=== PATIENT | female | born 1985 | race Caucasian/White ===

== ENCOUNTER 2018-03-05 21:18 | Inpatient (IN) | payer MEDICAID ==
[~2018-03-05] VITALS: Ht 142.2 cm; Wt 56.7 kg
[~2018-03-05 21:18] MED LIST: IBUP-974 PO; PREN-13 PO
[2018-03-05] MEDS ORDERED: LACTATED RINGERS 1,000 ML IV SCH (21:32)
[2018-03-05] MEDS ORDERED: OXYTOCIN 20 UNITS in LACTATED RINGERS 1,000 ML IV SCH (21:35)
[2018-03-05] MEDS ORDERED: PROMETHAZINE 25 MG/ML VIAL IVP PRN (21:35)
[2018-03-05] MEDS ORDERED: NALBUPHINE 10 MG/ML AMP IVP PRN (21:35)
[2018-03-05] MEDS ORDERED: OXYTOCIN 10 UNITS/ML VIAL IM SCH (22:00)
[2018-03-05 22:22] LABS: BASOPHILS % (AUTO) 0.8 % (0.0-2.0); EOSINOPHILS # (AUTO) 0.1 K/uL (0-0.4); EOSINOPHILS % (AUTO) 1.5 % (0.0-4.0); HEMATOCRIT 35.7 % (36-48); HEMOGLOBIN 12.2 g/dL (12.0-16.0); LYMPHOCYTES # (AUTO) 1.3 K/uL (2.5-16.5); LYMPHOCYTES % (AUTO) 23.3 % (20.5-51.1); MEAN CORPUSCULAR HEMOGLOBIN 29 pg (27-31); MEAN CORPUSCULAR HGB CONC 34 g/dL (33-37); MEAN CORPUSCULAR VOLUME 84.3 fL (80-94); MONOCYTES # (AUTO) 0.4 K/uL (0.8-1.0); NEUTROPHILS # (AUTO) 3.8 K/uL (1.8-7.7); NEUTROPHILS % (AUTO) 66.4 % (42.2-75.2); PLATELET COUNT (AUTO) 188 K/uL (140-450); RED BLOOD CELL COUNT(AUTO) 4.23 MIL/uL (4.20-5.40); RED CELL DISTRIBUTION WIDTH 14.6 % (11.6-13.7); WHITE BLOOD COUNT (AUTO) 5.7 K/uL (4.8-10.8)
[2018-03-05 22:27] LABS: APPEARANCE,URINE SL CLOUDY (CLEAR); BILIRUBIN,URINE NEGATIVE (NEGATIVE); BLOOD, URINE 2+ (NEGATIVE); COLOR,URINE YELLOW (YELLOW); LEUKOCYTE ESTERASE ,URINE NEGATIVE (NEGATIVE); NITRITE, URINE NEGATIVE (NEGATIVE); UGLUCOSE NEGATIVE (NEGATIVE)
[2018-03-05 22:29] LABS: ANION GAP 14.9 (8-16); CARBON DIOXIDE 22.3 mmol/L (21-32); CREATININE 0.6 mg/dL (0.6-1.3); POTASSIUM 4.2 mmol/L (3.5-5.1)
[2018-03-05 22:34] LABS: ALBUMIN 2.6 g/dL (3.4-5.0); TOTAL BILIRUBIN 0.2 mg/dL (0.0-1.0)
[2018-03-05] MEDS ORDERED: PREN-546 PO (22:39)
[2018-03-05] MEDS ORDERED: FERR325E14 PO (22:39)
[2018-03-05 22:43] VITALS: BP 126/82
[2018-03-05] MEDS ORDERED: OXYTOCIN 20 UNITS/LR PREMIX 1,000 ML IV ONE (22:49)
[2018-03-05 23:15] LABS: RBC,URINE 0-5 (RARE) /HPF (0-5); WBC,URINE 0-5 (RARE) /HPF (0-5)
[2018-03-06] MEDS ORDERED: NALBUPHINE 10 MG/ML AMP ONE (01:09)
[2018-03-06] MEDS ORDERED: PROMETHAZINE 25 MG/ML VIAL ONE (01:10)
[2018-03-06] MEDS ORDERED: OXYTOCIN 10 UNITS/ML VIAL ONE (01:16)
[2018-03-06] MEDS ORDERED: LIDOCAINE MPF 1% - **ER/OR** 0 ML ONE (01:20)
[2018-03-06] MEDS ORDERED: LIDOCAINE 1% 500 MG/50 ML VIAL INJ SCH (01:30)
[2018-03-06] MEDS ORDERED: HYDROcodone/APAP 5/325 MG 1 TAB TAB PO PRN (01:40)
[2018-03-06] MEDS ORDERED: OXYTOCIN 10 UNITS/ML VIAL IM PRN (01:40)
[2018-03-06] MEDS ORDERED: TEMAZEPAM 15 MG CAP PO PRN (01:40)
[2018-03-06] MEDS ORDERED: MEASLES, MUMPS, AND RUBELLA 1 VIAL SQVAC PRN (01:40)
[2018-03-06] MEDS ORDERED: IBUPROFEN 800 MG TAB PO PRN (01:40)
[2018-03-06] MEDS ORDERED: oxyCODONE/APAP 5/325 MG 1 TAB TAB PO PRN (01:40)
[2018-03-06] MEDS ORDERED: METHYLERGONOVINE 0.2 MG/ML AMP IM PRN (01:40)
[2018-03-06] MEDS ORDERED: BENZOCAINE/MENTHOL 20%-0.5% 60 GM CAN TP PRN (01:40)
--- NOTE | 2018-03-06 08:35 | NUR ---
PATIENT HAS BEEN SCREENED AND CATEGORIZED LOW NUTRITION RISK. PATIENT WILL BE SEEN WITHIN 7 DAYS OF ADMISSION. 03/12/[address]
[2018-03-06] MEDS ORDERED: DOCUSATE SOD/SENNA 50/8.6 MG 1 TAB PO SCH (21:00)
[2018-03-07 06:58] LABS: HEMATOCRIT 33.4 % (36-48); HEMOGLOBIN 11.4 g/dL (12.0-16.0)
[2018-03-07] MEDS ORDERED: IBUP-2213 PO ×2 (10:07→10:09)
== END 2018-03-07 18:25 | disposition home or self-care (01) | DRG 560 ==
LOC: MLD 21:18 → OBSVTOIN 21:37 → MFCC 03-06 03:20
PROVIDERS: ADMIT Obstetrics & Gynecology; ATTEND Obstetrics & Gynecology
PROC: 0HQ9XZZ Repair Perineum Skin, External Approach (ICD-10-PCS; principal; 2018-03-05)
PROC: 10E0XZZ Delivery of Products of Conception, External Approach (ICD-10-PCS; 2018-03-05)
PROC: 3E033VJ Introduction of Other Hormone into Peripheral Vein, Percutaneous Approach (ICD-10-PCS; 2018-03-05)
PROC: 3E0234Z Introduction of Serum, Toxoid and Vaccine into Muscle, Percutaneous Approach (ICD-10-PCS; 2018-03-05)
DX: O70.0 First degree perineal laceration during delivery (principal); Z23 Encounter for immunization; Z37.0 Single live birth; Z3A.38 38 weeks gestation of pregnancy
CPT/HCPCS: 36415; 80053; 81001; 85018; 85025; 86592; 86886; 86900; 86901; 90707; G0378; J2001; J2300; J2550; J2590; J7120